=== PATIENT | male | born 1990 | race Caucasian/White ===

== ENCOUNTER 2018-06-19 17:51 | Emergency (ER) | payer OTHER ==
[~2018-06-19] VITALS: Ht 177.8 cm; Wt 64.0 kg
[~2018-06-19 17:51] MED LIST: CEPH-572 PO
[2018-06-19] MEDS ORDERED: normal saline 1000ML IV soln IVB ONE (20:30)
[2018-06-19 20:56] LABS: BASOPHILS % (AUTO) 0.5 % (0-1); EOSINOPHILS # (AUTO) 0.1 X10'3 (0-0.9); EOSINOPHILS % (AUTO) 1.5 % (0-6); HEMATOCRIT 42.5 % (42.0-52.0); HEMOGLOBIN 14.5 g/dl (14.0-17.9); LYMPHOCYTES # (AUTO) 1.8 X10'3 (1.1-4.8); LYMPHOCYTES % (AUTO) 23.9 % (21-51); MEAN CORPUSCULAR HEMOGLOBIN 29.2 PG (27.0-31.0); MEAN CORPUSCULAR HGB CONC 34.1 g/dL (33.0-36.5); MEAN CORPUSCULAR VOLUME 85.6 FL (78-98); MEAN PLATELET VOLUME 8.6 FL (7.4-10.4); MONOCYTES # (AUTO) 0.5 X10'3 (0-0.9); MONOCYTES % (AUTO) 6.2 % (2-12); NEUTROPHILS # (AUTO) 5.1 X10'3 (1.8-7.7); NEUTROPHILS % (AUTO) 67.9 % (42-75); PLATELET COUNT 190 X10'3 (140-440); RED BLOOD COUNT 4.97 X10'6 (4.70-6.10); RED CELL DISTRIBUTION WIDTH 12.6 % (11.5-14.5); WHITE BLOOD COUNT 7.6 X10'3 (4.5-11.0)
[2018-06-19 21:08] LABS: ALANINE AMINOTRANSFERASE 24 U/L (12-78); ALBUMIN 4.2 G/DL (3.4-5.0); ALBUMIN/GLOBULIN RATIO 1.3 (1.1-1.5); ALKALINE PHOSPHATASE 74 IU/L (46-116); ANION GAP 6 (8-16); ASPARTATE AMINO TRANSFERASE 18 U/L (10-37); BILIRUBIN,TOTAL 0.3 MG/DL (0.1-1.0); BLOOD UREA NITROGEN 9 MG/DL (7-18); BUN/CREATININE RATIO 11.8 (5.4-32.0); CALCIUM 8.9 MG/DL (8.5-10.1); CHLORIDE 103 MMOL/L (99-107); CREATININE 0.76 MG/DL (0.60-1.10); ETHANOL < 0.010 GM/DL (0.0-0.010); GLUCOSE 101 MG/DL (70-104); POTASSIUM 3.9 MMOL/L (3.5-5.1); SODIUM 141 MMOL/L (135-145); TOTAL CARBON DIOXIDE 31.8 MMOL/L (24-32); TOTAL PROTEIN 7.5 G/DL (6.4-8.2); eGFR > 90 ML/MIN
[2018-06-19 21:33] LABS: CLARITY,URINE CLEAR (Clear); COLOR,URINE YELLOW (Yellow); GLUCOSE, URINE NEGATIVE (Neg); KETONES,URINE NEGATIVE (Neg); LEUKOCYTE ESTERASE ,URINE NEGATIVE (Neg); NITRITES, URINE NEGATIVE (Neg); OCCULT BLOOD,URINE NEGATIVE (Neg); PROTEIN,URINE NEGATIVE (Neg); UROBILINOGEN,URINE 0.2 E.U/dL (0.2-1.0)
[2018-06-19 21:35] LABS: UA COLLECTION TYPE CLN CATCH MIDSTREAM
[2018-06-19 21:40] VITALS: BP 134/79
[2018-06-19 21:46] LABS: URINE AMPHETAMINE SCREEN NEGATIVE (Neg); URINE BARBITUATE SCREEN NEGATIVE (Neg); URINE BENZODIAZEPINES SCREEN NEGATIVE (Neg); URINE CANNABINOID SCREEN POSITIVE (Neg); URINE COCAINE SCREEN NEGATIVE (Neg); URINE METHADONE SCREEN NEGATIVE (Neg); URINE OPIATE SCREEN NEGATIVE (Neg); URINE PHENCYCLIDINE SCREEN NEGATIVE (Neg)
== END 2018-06-19 21:48 | disposition home or self-care (01) ==
LOC: ER 17:52
DX: R40.1 Stupor (principal); R55 Syncope and collapse; R11.2 Nausea with vomiting, unspecified; F12.90 Cannabis use, unspecified, uncomplicated; Z86.69 Personal history of other diseases of the nervous system and sense organs; Z79.899 Other long term (current) drug therapy
CPT/HCPCS: 36415; 70450; 71045; 80053; 80305; 80320; 81003; 82948; 85025; 93005; 96360; 99284; J7030

== ENCOUNTER 2025-04-13 06:58 | Emergency (ER) | payer MEDICAID ==
[~2025-04-13] VITALS: Ht 177.8 cm; Wt 81.0 kg
[2025-04-13 06:59] VITALS: TEMP 97.7
--- NOTE | 2025-04-13 07:08 | ELECTROCARDIOGRAPH REPORT ---
[facility] Test Date: 2025-04-13 Test Time: 07:04:57 Pat Name: DOC MCMAHON Department: EMERGENCY ROOM Room: Gender: M Title Clerk Automobile: CHERIE : 1990 Requested By: EVON BADILLO Order Number: [id number] Reading MD: Measurements Intervals Brandon Rate: 69 P: 66 [place]: 176 QRS: 78 QRSD: 106 T: 68 QT: 388 QTc: 416 Interpretive Statements Sinus rhythm ST elev, probable normal early repol pattern Please click the below link to view image of tracing.
--- NOTE | 2025-04-13 07:25 | Physician Documentation ---
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 The patient states he was urinating this morning and he passed out. The patient denies any injury from the episode. Patient denies any history of similar. The patient denies any recent illness. Patient denies any chest pain or shortness of breath. Patient states he has has a heart murmur in the past. The patient's symptoms are mild and improved Medication Reconciliation Allergies: Coded Allergies: No Known Allergies (Unverified , 04/13/25) Scheduled Cephalexin (Keflex), 1 CAP PO QID Past Medical History Past Medical History: Headache, Seizures Past Surgical History: no surgical history Drug Use: marijuana Lives with: S/O Lives In: Home Review of Systems All Other Systems at this time: Reviewed and Negative Physical Exam Physical Exam Vital Signs: Temperature: 97.7, Source: Oral, Heart Rate: 68, Respiratory Rate: 20, BP: 109/63, Pulse Oximetry: 98, Weight: 81.000 Oxygen Flow Rate: 0 Physical Exam VITALS: Reviewed and as above. GENERAL: Alert, no apparent distress. HEENT: Normocephalic, atraumatic, PERRL, EOMI, dry mucosa, no erythema RESPIRATORY: Lungs clear, normal breath sounds, no respiratory distress. CHEST: No accessory muscle use, no retractions CV: Regular rate, rhythm, no edema, no murmur, No: JVD GI: Soft, non-tender, bowels sounds present, no rebound, guarding, or rigidity BACK: No CVA tenderness, or swelling MUSCULOSKELETAL: No deformities, no edema SKIN: Warm and dry, no rash NEURO: Oriented x4, No motor or sensory deficit PSYCH: Normal mood and affect, no agitation Progress Results/Orders Results/Orders Orders - OHLEVON DANIEL MD Chest,Single View (04/13/25 07:05) Monitor (04/13/25 07:05) Saline Lock (04/13/25 07:05) Oxygen (04/13/25 07:05) Hs Troponin I W Calculations (04/13/25 09:05) Completed Orders - OHLFS,EVON [place] MD Chest,Single View (04/13/25 07:05) Cbc/Diff (04/13/25 07:05) BMP (04/13/25 07:05) PBNP (04/13/25 07:05) Electrocardiogram (04/13/25 07:05) Hs Troponin I W Calculations (04/13/25 07:05) Normal Saline 1000ml (0.9% Sodium Chlori (04/13/25 07:25) Vital Signs 04/13/25 04/13/25 04/13/25 06:59 08:11 08:40 Temp 97.7 Pulse 68 66 69 Resp 20 24 14 B/P (MAP) 109/63 135/79 (97) 110/63 (79) Pulse Ox 98 100 100 O2 Flow Rate 0 0 0 Laboratory Tests Test 04/13/25 07:00 White Blood Count 8.2 Red Blood Count 5.07 Hemoglobin 14.9 Hematocrit 43.6 Mean Corpuscular Volume 85.9 Mean Corpuscular Hemoglobin 29.4 Mean Corpuscular Hemoglobin Concent 34.2 Red Cell Distribution Width 12.5 Platelet Count 250 Mean Platelet Volume 8.0 Neutrophils (%) (Auto) 56.3 Lymphocytes (%) (Auto) 30.2 Monocytes (%) (Auto) 9.3 Eosinophils (%) (Auto) 3.2 Basophils (%) (Auto) 1.0 Neutrophils # (Auto) 4.6 Lymphocytes # (Auto) 2.5 Monocytes # (Auto) 0.8 Eosinophils # (Auto) 0.3 Basophils # (Auto) 0.1 CBC Comment Sodium Level 142 Potassium Level 3.6 Chloride Level 107 Carbon Dioxide Level 27.9 Anion Gap 7 L Blood Urea Nitrogen 14 Creatinine 0.83 Estimated GFR/1.73 m2 > 90 BUN/Creatinine Ratio 16.9 Glucose Level 99 Calcium Level 8.4 L Troponin I High Sensitivity 7 Pro-B-Type Natriuretic Peptide < 30 Albumin 3.7 Chemistry Comments Medical Decision Making Additional information obtaine: old records Findings The patient is an otherwise healthy 34-year-old male with a an episode of micturition syncope slightly clinically dehydrated was given a L of fluid in the emergency room EKG was nonischemic otherwise well-appearing the patient's pivot end polisher was a sinus rhythm in his pulse oximetry was interpreted as normal the patient has a benign exam. His labs were reviewed the patient has remained hemodynamically stable and comfortable the patient will be discharged with instructions to follow up as an outpatient prior hospitalizations were reviewed. The patient's chest x-ray was interpreted by me as showed a normal cardiac silhouette and mediastinum and normal-appearing lung quintana. Differential Diagnosis Vasovagal syncope, dehydration, arrhythmia, Departure Disposition: HOME / SELF CARE / HOMELESS Impression: Primary Impression: Syncope Qualified Codes: R55 - Syncope and collapse Discharge Instructions: Syncope, Adult Referrals: NO PRIMARY CARE PROVIDER (PCP) Signature Scribe Signature: none Attestation: The note accurately reflects work and decisions made by me.Evon Barton MD 03/27 20:23 EVON BATRON MD Apr 13, 2025 07:25
[2025-04-13 07:27] LABS: MEAN PLATELET VOLUME 8.0 FL (7.4-10.4); RED CELL DISTRIBUTION WIDTH 12.5 % (11.5-14.5)
[2025-04-13] MEDS: normal saline 1000ML IV soln IVB ONE (07:29)
[2025-04-13 07:49] LABS: CREATININE 0.83 MG/DL (0.60-1.10); PRO BRAIN NATRIURETIC PEPTIDE < 30 PG/ML (0-125); TOTAL CARBON DIOXIDE 27.9 MMOL/L (24-32); eCRCL 131 ML/MIN; eGFR > 90 ML/MIN
--- NOTE | 2025-04-13 08:12 | RADIOLOGY REPORT ---
CLINICAL INFORMATION: Chest pain. TECHNIQUE: Single AP portable chest radiograph was obtained. COMPARISON: None FINDINGS: Lungs: Clear. Cardiac: Heart size is within normal limits. Pulmonary vasculature: Unremarkable. Mediastinum/yaron: Unremarkable. Bones: No acute osseous abnormality identified. Other: No other significant findings. IMPRESSION: No evidence of acute disease in the chest.
[2025-04-13 08:40] VITALS: BP 110/63; PULSE 69; RESP 14; O2SAT 100
== END 2025-04-13 09:10 | disposition home or self-care (01) ==
LOC: ER 06:59
DX: R55 Syncope and collapse (principal); F12.90 Cannabis use, unspecified, uncomplicated
CPT/HCPCS: 36415; 71045; 80048; 83880; 84484; 85025; 93005; 96360; 99285; J7030